=== PATIENT | female | born 1940 | race Caucasian/White ===

== ENCOUNTER 2018-07-30 06:20 | Day surgery (SDC) | payer OTHER ==
[~2018-07-30 06:20] MED LIST: ASPIR 8181 MG PO; LOSARTAN-HCTZ1 EAC2 PO; METFORMIN HCL500 M3 PO; ZEGERID 40 MG1 EACH PO; ZOCOR40 MG PO
[2018-07-30] MEDS ORDERED: PERCOCET 5-3251 EACH PO (13:55)
[2018-07-30] MEDS ORDERED: NEURONTIN800 MG PO (13:56)
[2018-07-30] MEDS ORDERED: POLY119PG PO (13:56)
[2018-07-30] MEDS ORDERED: SURFAK240 M1 PO (13:56)
== END 2018-07-30 19:00 | disposition home or self-care (01) ==
LOC: CIR.AMB 06:20 → AMB-ENDOS 12:00 → CIR.AMB 12:00
DX: K40.20 Bilateral inguinal hernia, without obstruction or gangrene, not specified as recurrent (principal); K42.9 Umbilical hernia without obstruction or gangrene; K43.2 Incisional hernia without obstruction or gangrene